=== PATIENT | female | born 1970 | race Caucasian/White ===

== ENCOUNTER 2018-10-10 14:15 | Observation (INO) ==
--- NOTE | 2018-10-10 15:30 | Consult Report ---
History of Present Illness Consult date: 10/10/18 Requesting physician: Siva More Consult reason: chest pain Chief complaint: chest pain Additional Medical History:: 1. Hypertension 2. Obesity 3. History of normal cardiac cath per patient approximately 2008, [facility], Dr. Justice Moncada 4. 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 Patient states that initially felt like something crawling up her back. 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 Patient was taken to [facility] for evaluation. In light of the patient's complaint of chest pain she was subsequently transferred to our facility for further evaluation by Dr. Barrera. Patient was given nitroglycerin paste for presumed chest pain. At this time the patient is pain-free and has a headache related to the nitroglycerin. EKG from [facility] shows sinus rhythm with no acute ST segment changes. Nursing reports some bradycardia into the low 50s high 40s at times. Patient denies syncope or loss of consciousness. She does relate similar symptoms over the past several years with the last episode of discomfort in the chest and palpitations being greater than 1 year. The patient is not a smoker and she is not diabetic. Patient denies any history of reflux symptoms although she does occasionally take Tums for upset stomach after eating certain foods. No recent nausea, vomiting or diarrhea. Patient denies any history of seizures or stroke. [facility] History Medical History: Reports:: Cancer (MELANOMA), Hypertension Denies:: Diabetes Mellitus Type 1, Diabetes Mellitus Type 2, MRSA *Have you ever received a pneumonia vaccine?: No *Have you received a flu vaccine this season?: No Other Surgeries: Yes: Cardiac Catheterization, Hysterectomy-Partial, Skin Cancer Excision, Tubal Ligation Amputation: No Fractures: No - *Social History Educational Level: Completed High School Smoking Status: Never smoker Alcohol Intake: never *Occupational Status:: employed Housing: house Household Members: spouse *Travel in the last 8 weeks: None - Psychiatric History Expresses thoughts of harming self/others: None Suicide Plan Description: No Plan Family Hx:: Cancer, Diabetes, Heart Attack, Hyperlipidemia, Hypertension, Kidney Disease Meds Home Medications Medication Instructions Recorded Confirmed Type hydroCHLOROthiazide [HCTZ 25mg 25 mg PO DAILY 10/10/18 10/10/18 History tab] Allergies Allergy/AdvReac Type Severity Reaction Status Date / Time Sulfa (Sulfonamide Allergy Verified 10/10/18 14:51 Antibiotics) Review of Systems - *Cardiovascular Reports chest pain, Reports shortness of breath with activity, Reports rapid, pounding, or irregular heartbeat - *Respiratory Reports shortness of breath with activity, Denies cough, Denies wheezing - *Gastrointestinal Denies abdominal pain, Denies change in stools, Denies loose stools, Denies nausea, Denies vomiting - *Genitourinary Denies blood in urine - *Musculoskeletal Reports back pain, Denies joint pain - *Neurologic Denies dizziness, Denies dizziness, Denies weakness Exam Vital signs and Labs for Last 24 Hours: Temp Pulse Resp BP Pulse Ox 99.3 F 58 L 22 105/46 L 95 10/10/18 14:42 10/10/18 14:55 10/10/18 14:42 10/10/18 14:42 10/10/18 14:55 I & O for Last 24 hours: Intake & Output 10/08/18 10/09/18 10/10/18 10/11/18 11:59 11:59 11:59 11:59 Weight 239 lb 6 oz - *Routine HEENT Exam Head: Present: normocephalic Eye: Present: EOMI, PERRL ENT: Present: mucous membranes moist - *Routine Neck Exam Present: supple. Absent: JVD, carotid bruit - *Routine Respiratory Exam Present: CTA bilaterally. Absent: accessory muscle use, rales, rhonchi, wheezes - *Routine Cardiovascular Exam Present: RRR. Absent: murmur, gallop, rubs - *Routine Abdominal Exam Present: soft. Absent: tenderness, distended, guarding - *Routine Extremities Exam Absent: edema, calf tenderness - *Routine Neurological Exam Present: alert, oriented X3, moving all extremities Assessment and Plan (1) Chest pain Current visit: Yes Status: Acute Category: Medical Code(s): R07.9 - Chest pain, unspecified (2) Hypertension Current visit: Yes Status: Acute Category: Medical Code(s): I10 - Essential (primary) hypertension (3) Palpitations Current visit: Yes Status: Acute Category: Medical Code(s): R00.2 - Palpitations (4) Obesity Current visit: Yes Status: Acute Category: Medical Code(s): E66.9 - Obesity, unspecified - Assessment and plan all Dx Assessment and Plan for all problems:: 1. Discontinue nitroglycerin paste due to headache. Hold hydrochlorothiazide for now. 2. Continue serial cardiac enzymes overnight 3. Plan for exercise Myoview tomorrow morning 4. Echocardiogram in progress with preliminary left ventricular size and function within normal limits 5. Labs pending at this time 6. Further recommendations to follow pending above results
--- NOTE | 2018-10-10 15:32 | Pharmacy Consult Notes ---
[facility] Pharmacy VTE Monitoring - Patient Demographics Admission date: 10/10/18 Report Date: 10/10/18 Time: 15:32 Allergies/Adverse Reactions: Patient Allergies Sulfa (Sulfonamide Antibiotics) Allergy (Verified 10/10/18 14:51) Height: 1.63 m Weight: 108.579 kg - VTE Risk Was VTE Risk Assessment Performed: Yes VTE Score: 4 VTE Risk Level: Low Risk - Prophylaxis VTE Prophylaxis Ordered?: Yes Types of VTE Prophylaxis: TEDS Knee High Location of Applied Device: Bilateral Lower Extremeties - VTE Diagnosis Confirmed Treatment or plan recommended: Continue Current Treatment
--- NOTE | 2018-10-10 19:57 | History & Physical Report ---
*Admission Date: 10/10/18 *Chief complaint: chest pain *History of present illness: this wf was at her baseline this am and was walking and dev stabbing ant chest pain with some tingling to lt upper ext - she last had pain about 3 yrs ago she has some dyspnea assoc with pain - she had possible near syncopal episode with this - she was [facility] and eval and discussed with dr wesley and transferred to [facility] for eval - -year-old white female who was at work talking with a colleague walking down an aisle when she developed mid thoracic back pain with radiation into the left arm and associated diaphoresis. Patient states that initially felt like something crawling up her back. 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 Patient was taken to [facility] for evaluation. In light of the patient's complaint of chest pain she was holloway bsequently transferred to our facility for further evaluation by Dr. Wesley. Patient was given nitroglycerin paste for presumed chest pain. At this time the patient is pain-free and has a headache related to the nitroglycerin. EKG from [facility] shows sinus rhythm with no acute ST segment changes. Nursing reports some bradycardia into the low 50s high 40s at times. Patient denies syncope or loss of consciousness. She does relate similar symptoms over the past several years with the last episode of discomfort in the chest and palpitations being greater than 1 year. The patient is not a smoker and she is not diabetic. Patient denies any history of reflux symptoms although she does occasionally take Tums for upset stomach after eating certain foods. No recent nausea, vomiting or diarrhea. Patient denies any history of seizures or stroke. [facility] History I have reviewed the patient's past medical history: Yes Medical History: Reports:: Cancer (MELANOMA), Hypertension Denies:: Diabetes Mellitus Type 1, Diabetes Mellitus Type 2, MRSA *Have you ever received a pneumonia vaccine?: No *Have you received a flu vaccine this season?: No Other Surgeries: Yes: Cardiac Catheterization, Hysterectomy-Partial, Skin Cancer Excision, Tubal Ligation Amputation: No Fractures: No - *Social History Educational Level: Completed High School Smoking Status: Never smoker Alcohol Intake: never *Occupational Status:: employed Housing: house Household Members: spouse *Travel in the last 8 weeks: None - Psychiatric History Expresses thoughts of harming self/others: None Suicide Plan Description: No Plan Family Hx:: Cancer, Diabetes, Heart Attack, Hyperlipidemia, Hypertension, Kidney Disease Review of Systems - Review of Systems Review of systems:: pertinent systems reviewed and negative unless documented below - Constitutional Denies fever(s) - Eyes Denies change in vision - ENT Denies sore throat - *Cardiovascular Reports chest pain at rest, Reports radiating jaw, neck or arm pain - *Respiratory Denies cough - *Gastrointestinal Denies abdominal pain - *Genitourinary Denies blood in urine - *Musculoskeletal Denies joint pain - Integumentary/Breasts Denies rash - *Neurologic Denies dizziness, Denies dizziness, Denies weakness - Psychiatric Denies anxiety Meds Home Medications Medication Instructions Recorded Confirmed Type hydroCHLOROthiazide [HCTZ 25mg 25 mg PO DAILY 10/10/18 10/10/18 History tab] Allergies Allergy/AdvReac Type Severity Reaction Status Date / Time Sulfa (Sulfonamide Allergy Verified 10/10/18 14:51 Antibiotics) Exam Vital signs and Labs for Last 24 Hours: Temp Pulse Resp BP Pulse Ox 99.3 F 60 22 105/46 L 95 10/10/18 14:42 10/10/18 16:00 10/10/18 14:42 10/10/18 14:42 10/10/18 14:55 Laboratory Results - last 24 hr 10/10/18 18:08: Troponin I < 0.02 I & O for Last 24 hours: Intake & Output 10/08/18 10/09/18 10/10/18 10/11/18 11:59 11:59 11:59 11:59 Intake Total 240 / 240 Balance 240 / 240 Weight 239 lb 6 oz - Constitutional no acute distress, obese - *Routine HEENT Exam Head: Present: normocephalic Eye: Present: EOMI, PERRL. Absent: conjunctival icterus ENT: Present: mucous membranes dry - *Routine Neck Exam Present: supple. Absent: JVD - *Routine Respiratory Exam Present: CTA bilaterally - *Routine Cardiovascular Exam Present: RRR, murmur. Absent: gallop, rubs - *Routine Abdominal Exam Present: soft - *Routine Extremities Exam Present: edema. Absent: calf tenderness, Concetta's sign - *Routine Skin Exam Present: intact - *Routine Neurological Exam Present: alert, oriented X3, CN II-XII intact - Routine Psychiatric Exam Present: normal affect Assessment and Plan (1) Chest pain Current visit: Yes Status: Acute Category: Medical Code(s): R07.9 - Chest pain, unspecified (2) Hypertension Current visit: Yes Status: Acute Category: Medical Code(s): I10 - Essential (primary) hypertension (3) Palpitations Current visit: Yes Status: Acute Category: Medical Code(s): R00.2 - Palpitations (4) Obesity Current visit: Yes Status: Acute Category: Medical Code(s): E66.9 - Obesity, unspecified (5) Thyroid nodule Current visit: Yes Status: Acute Category: Medical Code(s): E04.1 - Nontoxic single thyroid nodule
--- NOTE | 2018-10-11 06:08 | Cardiology Report ---
PROCEDURE: 2-D M-mode and color Doppler study INDICATIONS FOR THE TEST: Chest pain + COPD Heart Murmur Tobacco Smoking Palpitations Fatigue Syncope Edema Hypertension Diabetes Mellitus Rheumatic Fever SOB LEON Obesity Hyperlipidemia Family History HD Additional History PATIENT INFORMATION HEIGHT: 63 WEIGHT:239 GENDER: Female B/P:105/46 2-D/M-MODE INTERPRETATION: 2-D MEASUREMENTS OBSERVED VALUES IN CMS Right Ventricular Dimension (RVDd) Interventricular Septum (Thickness)(IVsd) 1.6 Left Ventricular Internal Dimensions(LVIDd) 5.1 Left Ventricular Posterior Wall (Thickness)(LVPWd) 1.0 Aortic Root 2.9 Aortic Cusp Separation 1.9 Left Atrial Dimensions (LAD) 3.7 2D 1. Left atrium is normal size is normal size there is no concentric left ventricular hypertrophy visually estimated ejection fraction 55% with no regional wall motion abnormality endocardial surfaces are poorly visualized. 2. The right atrium and ventricle are normal size and contractility. 3. The aortic, mitral and tricuspid valve are grossly normal. 4. The pulmonic valve is poorly visualized . 5. There is no significant pericardial effusion. DOPPLER INTERROGATION: Doppler interrogation of the aortic, mitral and tricuspid valvular presence of mild mitral and tricuspid regurgitation, tricuspid regurgitation jet velocity is inadequate for calculation of the right ventricular systolic pressure, diastolic parameters are inconclusive. CONCLUSION: 1. Normal left ventricular size, preserved ventricular systolic function, visually estimated ejection fraction 55% with no regional wall motion abnormality endocardial surfaces are poorly visualized. Diastolic parameters are inconclusive. 2. Mild mitral and tricuspid regurgitation 3. No significant Pericardial effusion noted.
[2018-10-11 09:31] LABS: Basophils # 0.1 K/mm3 (0-0.2); Basophils % 0.9 % (0.1-2.0); Eosinophils # 0.4 K/mm3 (0.0-0.4); Eosinophils % 5.8 % (0.1-12.0); Hematocrit 43.3 % (37.0-47.0); Hemoglobin 14.2 g/dL (12.2-16.2); Lymphocytes # 1.8 K/mm3 (0.7-4.5); Lymphocytes % 28.8 % (10-50); Mean Corpuscular HGB Conc 32.7 g/dL (31.8-35.4); Mean Corpuscular Volume 85.6 fl (81-99); Mean Platelet Volume 7.8 fl (7.4-10.4); Monocytes # 0.3 K/mm3 (0.1-1.0); Monocytes % 5.4 % (1.7-9.3); Neutrophils # 3.6 K/mm3 (1.8-7.8); Neutrophils % 59.1 % (37.0-80.0); Platelet Count 244 K/mm3 (142-424); Red Blood Count 5.06 M/mm3 (4.20-5.40); Red Cell Distribution Width 13.5 % (11.5-17.5); White Blood Count 6.1 K/mm3 (4.8-10.8)
[2018-10-11 09:49] LABS: Anion Gap 13.3 mEq/L (5-15); Calcium 8.4 mg/dL (8.5-10.1); Chol/HDL Ratio 4.1 (1-3.5)
[2018-10-11 15:33] VITALS: BP 126/72
--- NOTE | 2018-10-11 15:48 | Discharge Summary ---
General - General Admission date:: 10/10/18 Discharge date: 10/11/18 HPI HPI: this wf was at her baseline this am and was walking and dev stabbing ant chest pain with some tingling to lt upper ext - she last had pain about 3 yrs ago she has some dyspnea assoc with pain - she had possible near syncopal episode with this - she was brought to [facility] per ems and eval and discussed with dr wesley and transferred to [facility] for eval - -year-old white female who was at work talking with a colleague walking down an aisle when she developed mid thoracic back pain with radiation into the left arm and associated diaphoresis. Patient states that initially felt like something crawling up her back. 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 Patient was taken to [facility] for evaluation. In light of the patient's complaint of chest pain she was subsequently transferred to our facility for further evaluation by Dr. Wesley. Patient was given nitroglycerin paste for presumed chest pain. At this time the patient is pain-free and has a headache related to the nitroglycerin. EKG from [facility] shows sinus rhythm with no acute ST segment changes. Nursing reports some bradycardia into the low 50s high 40s at times. Patient denies syncope or loss of consciousness. She does relate similar symptoms over the past several years with the last episode of discomfort in the chest and palpitations being greater than 1 year. The patient is not a smoker and she is not diabetic. Patient denies any history of reflux symptoms although she does occasionally take Tums for upset stomach after eating certain foods. No recent nausea, vomiting or diarrhea. Patient denies any history of seizures or stroke. Hospital Course Hospital Course: pt did ok in hospital and had stress test this am and was neg and card felt pt could be d/c - labs are ok and stable cxr and echo Objective Vital signs: Temp Pulse Resp BP Pulse Ox 98.2 F 80 17 126/72 94 L 10/11/18 15:31 10/11/18 15:31 10/11/18 15:31 10/11/18 15:31 10/11/18 15:31 no acute distress - *Routine HEENT Exam Eye: Present: EOMI, PERRL ENT: Present: mucous membranes dry - *Routine Neck Exam Absent: JVD - *Routine Respiratory Exam Absent: respiratory distress - *Routine Cardiovascular Exam Present: RRR - *Routine Skin Exam Present: intact - *Routine Neurological Exam Present: alert, oriented X3, CN II-XII intact - Routine Psychiatric Exam Present: normal affect (exam based on prev exam ) Results Labs on day of discharge: Labs from last 24 hours 10/11/18 10/11/18 10/10/18 09:05 09:05 20:51 WBC 6.1 RBC 5.06 Hgb 14.2 Hct 43.3 MCV 85.6 MCH 28.0 MCHC 32.7 RDW 13.5 Plt Count 244 MPV 7.8 Neut % (Auto) 59.1 Lymph % (Auto) 28.8 [place] % (Auto) 5.4 Eos % (Auto) 5.8 Baso % (Auto) 0.9 Neut # (Auto) 3.6 Lymph # (Auto) 1.8 [place] # (Auto) 0.3 Eos # (Auto) 0.4 Baso # (Auto) 0.1 Sodium 143 Potassium 3.3 L Chloride 107 Carbon Dioxide 26 Anion Gap 13.3 BUN 12 Creatinine 0.72 Estimated Creat Clear 162 Estimated GFR 86 Est GFR ( Amer) 104 Glucose 96 Calcium 8.4 L Troponin I < 0.02 Triglycerides 111 Cholesterol 141 LDL Cholesterol 85 VLDL Cholesterol 22 HDL Cholesterol 34 Cholesterol/HDL Ratio 4.1 H 10/10/18 18:08 WBC RBC Hgb Hct MCV MCH MCHC RDW Plt Count MPV Neut % (Auto) Lymph % (Auto) [place] % (Auto) Eos % (Auto) Baso % (Auto) Neut # (Auto) Lymph # (Auto) [place] # (Auto) Eos # (Auto) Baso # (Auto) Sodium Potassium Chloride Carbon Dioxide Anion Gap BUN Creatinine Estimated Creat Clear Estimated GFR Est GFR ( Amer) Glucose Calcium Troponin I < 0.02 Triglycerides Cholesterol LDL Cholesterol VLDL Cholesterol HDL Cholesterol Cholesterol/HDL Ratio DS: Diagnosis - Discharge Diagnosis (1) Chest pain Status: Acute (2) Hypertension Status: Acute (3) Palpitations Status: Acute (4) Obesity Status: Acute (5) Thyroid nodule Status: Acute Discharge Plan - Patient Discharge Instructions ACTIVITY: Continue current activity DIET: continue same diet Patient Instructions: High Blood Pressure, DI for Chest Pain, DI for Palpitations - Follow up Plan Disposition: Home, Self-[facility] Medications: Home Medications Medication Instructions Recorded Confirmed Type hydroCHLOROthiazide [HCTZ 25mg 25 mg PO DAILY 10/10/18 10/10/18 History tab] Prescriptions/Medication Reconciliation: Continued hydroCHLOROthiazide [HCTZ 25mg tab] 25 mg PO DAILY
--- NOTE | 2018-10-11 15:53 | Progress Note ---
Subjective Date: 10/11/18 Time: 15:51 Principal diagnosis: chest pain Interval history: 48 yo WF in bed in [facility]. Telemetry shows no significant arrhythmias. Pt was down for stress test this AM. Exam Vital signs and Labs for Last 24 Hours: Temp Pulse Resp BP Pulse Ox 98.2 F 80 17 126/72 94 L 10/11/18 15:31 10/11/18 15:31 10/11/18 15:31 10/11/18 15:31 10/11/18 15:31 Laboratory Results - last 24 hr 10/10/18 18:08: Troponin I < 0.02 10/10/18 20:51: Troponin I < 0.02 10/11/18 09:05: WBC 6.1, RBC 5.06, Hgb 14.2, Hct 43.3, MCV 85.6, MCH 28.0, MCHC 32.7, RDW 13.5, Plt Count 244, MPV 7.8, Neut % (Auto) 59.1, Lymph % (Auto) 28.8, [place] % (Auto) 5.4, Eos % (Auto) 5.8, Baso % (Auto) 0.9, Neut # (Auto) 3.6, Lymph # (Auto) 1.8, [place] # (Auto) 0.3, Eos # (Auto) 0.4, Baso # (Auto) 0.1 10/11/18 09:05: Sodium 143, Potassium 3.3 L, Chloride 107, Carbon Dioxide 26, Anion Gap 13.3, BUN 12, Creatinine 0.72, Estimated Creat Clear 162, Estimated GFR 86, Est GFR ( Amer) 104, Glucose 96, Calcium 8.4 L, Triglycerides 111, Cholesterol 141, LDL Cholesterol 85, VLDL Cholesterol 22, HDL Cholesterol 34, Cholesterol/HDL Ratio 4.1 H I & O for Last 24 hours: Intake & Output 10/09/18 10/10/18 10/11/18 10/12/18 11:59 11:59 11:59 11:59 Intake Total 240 / 240 360 / 360 Balance 240 / 240 360 / 360 Weight 239 lb 9 oz 239 lb 9.01 oz - *Routine HEENT Exam Head: Present: normocephalic Eye: Present: EOMI, PERRL ENT: Present: mucous membranes moist - *Routine Respiratory Exam Present: CTA bilaterally. Absent: accessory muscle use, rales, rhonchi, wheezes - *Routine Cardiovascular Exam Present: RRR. Absent: murmur, gallop, rubs - *Routine Neurological Exam Present: alert, oriented X3, moving all extremities Progress Note: A&P (1) Chest pain Status: Acute Current Visit: Yes (2) Hypertension Status: Acute Current Visit: Yes (3) Palpitations Status: Acute Current Visit: Yes (4) Obesity Status: Acute Current Visit: Yes (5) Thyroid nodule Status: Acute Current Visit: Yes Assessment and Plan for All Diagnoses:: Normal stress myoview today with normal LVEF. Consider outpatient workup for GI issues as possible etiology for symptoms. OK for discharge from cardiology standpoint.
== END 2018-10-11 16:36 | disposition home or self-care (01) ==
LOC: 2ND
PROVIDERS: ADMIT Emergency Medicine; ATTEND Emergency Medicine
DX: E66.9 Obesity, unspecified; E04.1 Nontoxic single thyroid nodule; Z68.41 Body mass index [BMI] 40.0-44.9, adult; S16.1XXA Strain of muscle, fascia and tendon at neck level, initial encounter; R00.2 Palpitations; R07.9 Chest pain, unspecified; I10 Essential (primary) hypertension; Z88.2 Allergy status to sulfonamides; S00.93XA Contusion of unspecified part of head, initial encounter
CPT/HCPCS: 36415; 70450; 72125; 78452; 80048; 80061; 84484; 85025; 93005; 93017; 93306; A9502; G0378

== ENCOUNTER → 2022-02-16 08:02 | Outpatient (CLI) | payer BC, SELFPAY ==
--- NOTE | 2022-02-16 08:15 | XR_ITS ---
FINAL REPORT CLINICAL HISTORY: knee pain x3 months FINDINGS: Three views of the right knee reveal no evidence of fracture or dislocation. The bony alignment is normal. There are mild degenerative changes. There is a 10 mm osteochondroma extending from the medial proximal tibial metaphysis. There is no evidence of joint effusion. No localized soft tissue abnormality is identified. IMPRESSION: Degenerative change with no acute abnormality identified. 10 mm osteochondroma extending from the medial proximal tibial metaphysis. Reviewed, Interpreted and Dictated by Db Gamboa III, MD Transcribed by Florence Mejia Authenticated and [facility]
== END ==
PROVIDERS: PCP Family Medicine; Visit Provider Orthopaedic Surgery
DX: M25.561 Pain in right knee (principal)
CPT/HCPCS: 73562